=== PATIENT | female | born 1970 | race Caucasian/White ===

== ENCOUNTER → 2017-03-19 | Outpatient (CLI) | payer OTHER ==
--- NOTE | 2017-03-19 09:50 | RADIOLOGY REPORT (SQ) ---
EXAM DESCRIPTION: FOOT RIGHT COMPLETE COMPLETED DATE/TIME: 03/19/2017 9:36 am REASON FOR STUDY: PAIN IN RIGHT FOOT M79.671 PAIN IN RIGHT FOOT COMPARISON: None. NUMBER OF VIEWS: Three views. TECHNIQUE: AP, lateral and oblique radiographic images acquired of the right foot. LIMITATIONS: None. FINDINGS: MINERALIZATION: Normal. BONES: No acute fracture or dislocation. No aggressive demineralization or periostitis along the 1st MTP joint worrisome for osteomyelitis. JOINTS: No 1st MTP joint space narrowing. No bulky bony spurring SOFT TISSUES: Soft tissue ulcer along the medial aspect of the right 1st MTP joint. No radiopaque fo reign body. OTHER: No other significant finding. IMPRESSION: Soft tissue ulcer medial aspect 1st MTP joint without underlying bony erosions, periosti tis, or joint space narrowing to suggest septic arthritis/ osteomyelitis at this time TECHNICAL DOCUMENTATION: JOB ID: [id number] [employer]- All Rights Reserved
== END ==
LOC: OD 08:01
PROVIDERS: ATTEND Nurse Practitioner Family
DX: M79.671 Pain in right foot (principal); L97.519 Non-pressure chronic ulcer of other part of right foot with unspecified severity